=== PATIENT | male | born 1935 | race Caucasian/White ===

== ENCOUNTER 2017-01-08 21:34 | Emergency (ER) | payer MEDICARE, BC ==
--- NOTE | 2017-01-08 23:02 | UC ---
HPI Febrile Illness - HPI Summary HPI Summary: FEVER 101 JPTA AT HOME. HAD BRONCHOSCOPY DONE THIS AM IN [place] TO EVALUATE POSSIBLE LUNG CANCER. DENIES OTHER POSSIBLE SOURCE ON INFECTION; NO URI SX, NO COUGH, URINE CLEAR, NO MYALGIA. FEELS TIRED AND WEAK BUT, DENIES LIGHTHEADEDNESS. - History of Current Complaint Chief Complaint: UCGeneralIllness Time Seen by Provider: 01/08/17 22:38 Hx Obtained From: Patient, Family/Child Life Assistant Onset/Duration: Started Hours Ago Temperature: 101 F Current Severity: Mild Associated Signs and Symptoms: Chills, Weakness - Allergy/Home Medications Allergies/Adverse Reactions: Allergies Allergy/AdvReac Type Severity Reaction Status Date / Time Cephalexin Allergy Hallucinati Verified 01/08/17 22:24 ons Codeine Allergy Hallucinati Verified 01/08/17 22:24 ons Levofloxacin Allergy Itching Verified 01/08/17 22:24 Naproxen Allergy Unknown Verified 01/08/17 22:24 Reaction Details Sulfa Antibiotics Allergy Rash Verified 01/08/17 22:24 Amoxicillin AdvReac GI Upset Verified 01/08/17 22:24 Clavulanic Acid AdvReac GI Upset Verified 01/08/17 22:24 [From Augmentin] Home Medications: Home Medications Bupropion XL* [Wellbutrin XL *] 300 mg PO DAILY 01/08/17 [History Confirmed ] PMH/Surg Hx/FS Hx/Imm Hx Previously Healthy: No - Cancer History Cancer Type, 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, 1998 - Surgical History Surgery Procedure, Year, and Place: Urostomy, 1998; Kidney Stones, 2007 Infectious Disease History: No Infectious Disease History: Denies: Traveled Outside the [place] in Last 30 Days - Social History Alcohol Use: Daily Alcohol Amount: 2 oz VO with 2 oz water daily Substance Use Type: Reports: None Smoking Status (MU): Former Smoker Type: Cigarettes, Pipe Amount Used/How Often: ~1/2 PPD Length of Time of Smoking/Using Tobacco: 49 Years Have You Smoked in the Last Year: No Review of Systems Constitutional: Fever, Chills Skin: Negative Eyes: Negative ENT: Negative Respiratory: Negative Cardiovascular: Negative Gastrointestinal: Negative Genitourinary: Negative Motor: Negative Neurovascular: Negative Musculoskeletal: Negative Neurological: Negative Psychological: Negative All Other Systems Reviewed And Are Negative: Yes Physical Exam Triage Information Reviewed: Yes Appearance: Well-Appearing, No Pain Distress Vital Signs: Initial Vital Signs Temp 100.5 F 01/08/17 22:15 Pulse 88 01/08/17 22:15 Resp 18 01/08/17 22:15 BP 90/45 01/08/17 22:15 Pulse Ox 97 01/08/17 22:15 Vital Signs Reviewed: Yes ENT Exam: Normal Neck exam: Normal Neck: Positive: Supple Respiratory Exam: Normal Respiratory: Positive: Lungs clear, Normal breath sounds, No respiratory distress Cardiovascular Exam: Normal Cardiovascular: Positive: RRR Abdominal Exam: Normal Abdomen Description: Positive: Nontender Bowel Sounds: Positive: Present Musculoskeletal Exam: Normal Neurological Exam: Normal Psychological Exam: Normal Skin Exam: Normal - Additional Comments URINE IN UROSTOMY BAG HAS SOME SEDIMENT BUT IS OVERALL CLEAR. Course/Dx - Course Assessment/Plan: FEVER OF UNKNOWN ORIGIN AND HYPOTENSION IN A PATIENT WITH A RECENT BRONCHOSCOPY. I RECOMMENDED IMMEDIATE EVALUATION AND TREATMENT AT THE EMERGENCY DEPARTMENT. PATIENT AND DECLINED. SIGNED AMA. - Diagnoses Clinic Provider Diagnoses: FEVER AND HYPOTENSION OF UNKNOWN ORIGIN IN A PATIENT WITH RECENT BRONCHOSCOPY Discharge - Discharge Plan Condition: Guarded Disposition: AGAINST MEDICAL ADVICE Patient Education Materials: Fever in Adults (ED), Hypotension (ED) Additional Instructions: FOLLOW UP WITH YOUR DOCTOR. GO TO THE EMERGENCY DEPARTMENT FOR EVALUATION AND TREATMENT OF YOUR CONDITION.
[2017-01-08 23:03] VITALS: BP 78/39
== END 2017-01-08 23:12 | disposition left against medical advice (07) ==
LOC: UCCORT 21:34
DX: R50.9 Fever, unspecified (principal); I95.9 Hypotension, unspecified; Z88.6 Allergy status to analgesic agent; Z88.1 Allergy status to other antibiotic agents; Z88.5 Allergy status to narcotic agent; Z88.2 Allergy status to sulfonamides; Z87.891 Personal history of nicotine dependence
CPT/HCPCS: 99212; G0463